=== PATIENT | female | born 1990 | race Caucasian/White ===

== ENCOUNTER → 2016-10-29 | Outpatient (CLI) | payer BC ==
[~2016-10-29] MED LIST: DOCU100C31 PO; MTR600X PO; OXYC-57 PO; PRENTAB26 PO
== END | disposition home or self-care (01) ==
LOC: C.LABSPEC 10:27
PROVIDERS: ATTEND Obstetrics & Gynecology
DX: O09.03 Supervision of pregnancy with history of infertility, third trimester (principal); Z3A.00 Weeks of gestation of pregnancy not specified

== ENCOUNTER → 2016-10-31 | Outpatient (CLI) | payer BC ==
[2016-10-31 10:40] LABS: PATIENT HEIGHT 167.6 cm
[2016-10-31 10:41] LABS: HEMATOCRIT 33.8 % (37-47); MEAN CELL VOLUME 80.5 fL (80-100); MEAN CORPUSCULAR HEMOGLOBIN 26.9 pg (25-34); MEAN CORPUSCULAR HGB CONC 33.4 g/dl (32-36); MEAN PLATELET VOLUME 12.4 fL (7.4-10.4); PLATELET COUNT 238 K/uL (130-400); WHITE BLOOD COUNT 10.41 K/uL (4.8-10.8)
[2016-10-31 11:11] LABS: ALT/SGPT 33 U/L (12-78); AST/SGOT 9 U/L (15-37); CREATININE 0.75 mg/dl (0.60-1.20)
[2016-10-31 11:13] LABS: ALKALINE PHOSPHATASE 152 U/L (45-117)
[2016-10-31 11:46] LABS: URINE TOTAL PROTEIN 13.5 mg/dl (0-11.9)
[2016-10-31 12:32] LABS: CREATININE 0.71 mg/dl (0.6-1.2)
[2016-10-31 12:34] LABS: URINE TOTAL PROTEIN CALC 182.3 mg/24 hr (0-149.1)
== END | disposition home or self-care (01) ==
LOC: C.LAB 10:05
PROVIDERS: ATTEND Obstetrics & Gynecology
DX: O16.3 Unspecified maternal hypertension, third trimester (principal)

== ENCOUNTER 2016-11-01 04:13 | Outpatient (CLI) | payer BC | END 2016-11-01 08:15 | disposition home or self-care (01) | LOC: C.OPB 04:13 → C.LD 04:16 → C.OPB 08:15 | PROVIDERS: ATTEND Obstetrics & Gynecology | DX: O62.9 Abnormality of forces of labor, unspecified (principal); Z3A.37 37 weeks gestation of pregnancy ==

== ENCOUNTER 2016-11-17 04:38 | Inpatient (IN) | payer BC ==
[~2016-11-17] VITALS: Ht 167.6 cm; Wt 120.0 kg
[2016-11-17] MEDS ORDERED: DOCU100C31 PO (05:15)
[2016-11-17] MEDS ORDERED: PRENTAB26 PO (05:15)
[2016-11-17 05:16] VITALS: Ht 167.6 cm; Wt 120.0 kg
[2016-11-17] MEDS ORDERED: LACTATED RINGER'S 1000ML 1,000 ML IV PRN (05:41)
[2016-11-17 06:39] LABS: HEMATOCRIT 32.6 % (37-47); MEAN CELL VOLUME 81.1 fL (80-100); MEAN CORPUSCULAR HEMOGLOBIN 26.9 pg (25-34); MEAN CORPUSCULAR HGB CONC 33.1 g/dl (32-36); MEAN PLATELET VOLUME 12.4 fL (7.4-10.4); PLATELET COUNT 237 K/uL (130-400); RED BLOOD COUNT 4.02 M/uL (4.2-5.4); WHITE BLOOD COUNT 9.07 K/uL (4.8-10.8)
[2016-11-17] MEDS: LACTATED RINGER'S 1000ML 1,000 ML IV SCH (10:30)
[2016-11-17] MEDS ORDERED: BUPIVACAINE 0.25% 30 ML VIAL ONE (10:31)
[2016-11-17] MEDS ORDERED: EpHEDrine SULFATE INJ 50 MG/ML AMP ONE (10:32)
[2016-11-17] MEDS ORDERED: FENTANYL CITRATE INJ 50 MCG/1 ML 2 ML VIAL ONE (10:32)
[2016-11-17] MEDS ORDERED: FENTANYL 2MCG/ML ROPIV 1.25MG/ML 100ML BAG EPI ONE (10:32)
[2016-11-17] MEDS ORDERED: NALOXONE HCL INJ 1 MG in SODIUM CHLORIDE 0.9% 1000ML 1,000 ML IV PRN (11:59)
[2016-11-17] MEDS ORDERED: LACTATED RINGER'S 1000ML 500 ML IV PRN ×2 (11:59→13:05)
[2016-11-17] MEDS ORDERED: EpHEDrine SULFATE INJ 50 MG/ML AMP IV PRN (12:00)
[2016-11-17] MEDS ORDERED: NALBUPHINE HCL INJ 10 MG/ML AMP IV PRN (12:00)
[2016-11-17] MEDS ORDERED: DiphenhydrAMINE HCL 50 MG/ML VIAL IV PRN (12:00)
[2016-11-17] MEDS ORDERED: ONDANSETRON INJ 2 MG/ML 2 ML VIAL IV PRN (12:00)
[2016-11-17] MEDS ORDERED: NALOXONE HCL INJ 0.4 MG/1 ML VIAL/CARP IV PRN (12:00)
[2016-11-17] MEDS: OXYTOCIN 30 UNITS/500ML NSS IV PRN (13:20)
--- NOTE | 2016-11-17 13:38 | Medical Student: [facility] ---
Med Student History & Physical Date of Service Nov 17, 2016. 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 Her history is significant for Rh negative status, PCOS, history of infertility, cystic fibrosis carrier, and gestational hypertension. At 12 week visit, BP was 142/86 and at 39 week visit, BP was 140/78. She was scheduled for weekly NSTs @ 32 weeks and biweekly NSTs @ 36 weeks. All NSTs thus far have been reactive and last growth US showed EFW 90% and UAD and HERRERA WNL. During her course, she did have a positive diabetes screen of 147 at 28 week check. Her subsequent 2 hour GTT was normal. This was conceived on Femara and Metformin. Patient's BIOSTATISTICS DIRECTOR history is insignificant as last pap in 2015 was negative for intraepithelial lesion or malignancy. Obstetrical history is significant for a spontaneous in 2015. Patient is blood type AB negative, negative antibody screen, rubella immune, VDRL/RPR nonreactive, HbsAg & HIV negative, G & C negative, negative GBS culture , and negative 2nd trimester screen. Patient was positive for a cystic fibrosis carrier, but father is not a carrier. OB History Obstetrical history is significant for a spontaneous in 2015. BIOSTATISTICS DIRECTOR History Her BIOSTATISTICS DIRECTOR history is significant for menarche at age 13. Menstruation was always irregular d/t PCOS. Last pap smears in 2013 and 2015 were negative for intraepithelial lesion or malignancy. No history of abnormal pap smears or STIs. Past Medical History PMH is significant for obesity and PCOS. Past Surgical History Surgical history is significant for chin surgery, myringotomy tubes, and wisdom teeth extraction. Family History Family history is significant for a grandmother who had a child with spina bifida. Social History Smoking Status: Never Smoker Smokeless Tobacco Use: No Alcohol Use: none Drug Use: none Marital Status: Housing status: lives with significant other Occupational Status: unemployed Allergies Coded Allergies: No Known Allergies (Unverified , 11/17/16) Home Medications Docusate Sodium (Docusate Sodium), 1 CAP PO BID Multivit/Min/Iron/Fol Ac/Pren ( Vitamin), 1 TAB PO DAILY Review of Systems Constitutional: + problem reported (Headache), No fever Eyes: No worsening of vision ENT: No hearing loss Respiratory: No cough, No shortness of breath Cardiovascular: No chest pain, No palpitations Abdomen: + nausea, No constipation, No diarrhea, No pain, No vomiting Genitourinary - Female: No dysuria Integumentary: No new/changing skin lesions, No rash Physical Exam General Appearance: WD/WN, no apparent distress Head: normocephalic Eyes: normal inspection ENT: normal ENT inspection Neck: supple Respiratory/Chest: lungs clear, normal breath sounds, no respiratory distress Cardiovascular: regular rate, rhythm, no edema, no gallop, no JVD, no murmur Extremities: no pedal edema Skin: normal color Cervical Exam: 2 cm dilated, 70 % effaced, -2 station Monitoring External Monitor: heart tracing category 1: HR 144, moderate variability, absent accelerations, absent variable, late and early decelerations Tocodynamometer: contractions every 2-5 minutes Laboratory Results 11/17/16 05:58 Test 11/17/16 05:58 Red Blood Count 4.02 M/uL (4.2-5.4) Mean Corpuscular Volume 81.1 fL (80-100) Mean Corpuscular Hemoglobin 26.9 pg (25-34) Mean Corpuscular Hemoglobin Concent 33.1 g/dl (32-36) RDW Standard Deviation 45.3 fL (36.4-46.3) RDW Coefficient of Variation 15.3 % (11.5-14.5) Mean Platelet Volume 12.4 fL (7.4-10.4) Assessment and Plan 26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 Her history is significant for Rh negative status, PCOS, history of infertility, cystic fibrosis carrier, and gestational hypertension. Patient is currently in latent Stage 1 of labor. -continue IV Zofran 4 mg q6hr for nausea -continue IV Nalbuphine 5 mg Q10M PRN -continue Oxytocin 30 units UD IV PRN for labor induction -continue epidural for pain -encourage ambulation -continue EFM
--- NOTE | 2016-11-17 16:55 | Medical Student: [facility] ---
Med Student ELECTROMECHANICAL ENGINEER Progress Nt Date of Service Nov 17, 2016. Subjective conversation w/ patient Notes: 26 year old , PLEATER HAND of 11/21/16 by LMP 02/15/16, 39 + 1 weeks GA, for labor check. Her history is significant for Rh negative status, PCOS, history of infertility, cystic fibrosis carrier, and gestational hypertension. Patient did have some bleeding (bloody show), but no other fluid leaks. Patient can feel pressure with each contraction and continues to feel the baby moving. Patient feels much better after straight catheterization (500 cc) and after being repositioned. Patient has FRANCIS, but denies vision changes,dizziness, chest pain, and SOB. Review of Systems Constitutional: + problem reported (headache), No fever Respiratory: No cough, No shortness of breath Cardiac: No chest pain, No palpitations Abdomen: No constipation, No diarrhea, No nausea, No pain, No vomiting Female : No dysuria Objective Vital Signs maternal HR 111 maternal BP 141/82 Physical Exam General Appearance: WELL-APPEARING, WD/WN Respiratory/Chest: lungs clear, normal breath sounds, no respiratory distress Cardiovascular: regular rate, rhythm, no edema, no gallop, no JVD, no murmur Laboratory Results Last 24 Hours Test 11/17/16 05:58 White Blood Count 9.07 K/uL Red Blood Count 4.02 M/uL Hemoglobin 10.8 g/dL Hematocrit 32.6 % Mean Corpuscular Volume 81.1 fL Mean Corpuscular Hemoglobin 26.9 pg Mean Corpuscular Hemoglobin Concent 33.1 g/dl RDW Standard Deviation 45.3 fL RDW Coefficient of Variation 15.3 % Platelet Count 237 K/uL Mean Platelet Volume 12.4 fL Medications Medications (Trade) Dose Ordered Sig/Vicky Route Start Time Stop Time Status Last Admin Dose Admin Lactated Ringer's (Lr 1000ml) 1,000 ml @ 125 mls/hr Q8H IV 11/17/16 05:41 11/19/16 05:40 11/17/16 10:30 125 MLS/HR Bupivacaine HCl (Sensorcaine 0.25% Inj) 30 ml STK-MED ONCE .ROUTE 11/17/16 10:31 11/17/16 10:33 DC 11/17/16 11:57 30 ML Fentanyl/ Ropivacaine (Fentanyl 2MCG/ Ml/Ropivacaine 1.25MG/ML) 100 ml STK-MED ONCE EPI 11/17/16 10:32 11/17/16 10:33 DC 11/17/16 11:57 100 ML Fentanyl Citrate (Fentanyl Inj) 100 mcg STK-MED ONCE .ROUTE 11/17/16 10:32 11/17/16 10:34 DC 11/17/16 11:58 20 MCG Oxytocin (Pitocin IV) 30 units UD PRN IV 11/17/16 13:15 12/17/16 13:14 11/17/16 13:20 30 UNITS Assessment and Plan Continue Routine Care: 26 year old , PLEATER HAND of 11/21/16 by LMP 02/15/16, 39 + 1 weeks GA, for labor check. Her history is significant for Rh negative status, PCOS, history of infertility, cystic fibrosis carrier, and gestational hypertension. Patient is currently in latent Stage 1 of labor. heart tracing is category 1 (HR 147, moderate variability, absent accelerations, absent early, late and variable decelerations). -continue IV Zofran 4 mg q6hr for nausea -continue IV Nalbuphine 5 mg Q10M PRN -increase Oxytocin to 50 units UD IV PRN for labor induction -continue epidural for pain -encourage ambulation -continue EFM
[2016-11-17] MEDS: FENTANYL 2MCG/ML ROPIV 1.25MG/ML 100ML BAG EPI PRN ×2 (19:21→21:07)
[2016-11-18] VITALS (15 sets, daily range): BP systolic 97–124; BP diastolic 60–80; PULSE 69–90; TEMP 36.9–37.4; O2SAT 92–100
[2016-11-18] MEDS: LACTATED RINGER'S 1000ML 1,000 ML IV SCH ×3 (00:30→09:37)
[2016-11-18] MEDS: FENTANYL 2MCG/ML ROPIV 1.25MG/ML 100ML BAG EPI PRN ×4 (03:16→07:33)
[2016-11-18] MEDS ORDERED: NURSING VERBAL MED ORDER ONE (03:30)
[2016-11-18] MEDS ORDERED: BUPIVACAINE 0.25% 30 ML VIAL ONE (04:08)
[2016-11-18] MEDS: OXYTOCIN 30 UNITS/500ML NSS IV PRN (06:24)
--- NOTE | 2016-11-18 08:05 | Medical Student: [facility] ---
Med Student FISH PITCHER Progress Nt Date of Service Nov 18, 2016. 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 Her history is significant for Rh negative status, PCOS, history of infertility, cystic fibrosis carrier, and gestational hypertension. Patient was sleeping when I entered the room. Objective Vital Signs Maternal HR 95 Maternal BP 126/60 Physical Exam Internal Monitoring: heart tracing Category 1 (HR 145, moderate variability, absent accelerations, present early decelerations, absent late and variable decelerations) Tocodynamometer: Contractions every 3-4 minutes Medications Medications (Trade) Dose Ordered Sig/Vicky Route Start Time Stop Time Status Last Admin Dose Admin Bupivacaine HCl (Sensorcaine 0.25% Inj) 30 ml STK-MED ONCE .ROUTE 11/17/16 10:31 11/17/16 10:33 DC 11/17/16 11:57 30 ML Fentanyl/ Ropivacaine (Fentanyl 2MCG/ Ml/Ropivacaine 1.25MG/ML) 100 ml STK-MED ONCE EPI 11/17/16 10:32 11/17/16 10:33 DC 11/17/16 11:57 100 ML Fentanyl Citrate (Fentanyl Inj) 100 mcg STK-MED ONCE .ROUTE 11/17/16 10:32 11/17/16 10:34 DC 11/17/16 11:58 20 MCG Fentanyl/ Ropivacaine (Fentanyl 2MCG/ Ml/Ropivacaine 1.25MG/ML) 100 ml PRN PRN EPI 11/17/16 12:00 11/18/16 04:30 DC 11/18/16 04:18 100 ML Oxytocin (Pitocin IV) 30 units UD PRN IV 11/17/16 13:15 12/17/16 13:14 11/18/16 06:24 30 UNITS Fentanyl/ Ropivacaine (Fentanyl 2MCG/ Ml/Ropivacaine 1.25MG/ML) 100 ml PRN PRN EPI 11/18/16 04:30 11/19/16 04:29 11/18/16 07:33 100 ML Assessment and Plan Continue Routine Care: 26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 Her history is significant for Rh negative status, PCOS, history of infertility, cystic fibrosis carrier, and gestational hypertension. Patient is in active Stage 1 of labor (8 cm dilated, 100% effaced, 0 station). heart tracing is Category 1. -continue IV Oxytocin 30 units UD PRN for labor induction -continue Internal monitoring, watch for late decelerations
[2016-11-18] MEDS ORDERED: LIDOCAINE/EPINEPHRINE 2% 1:200,000 20 ML SDV ONE (08:59)
[2016-11-18] MEDS ORDERED: CEFAZOLIN IV 3,000 MG in DEXTROSE 5% 50ML 50 ML IV SCH (09:00)
[2016-11-18] MEDS ORDERED: LACTATED RINGER'S 1000ML 1,000 ML IV ONE (09:30)
[2016-11-18] MEDS ORDERED: CITRIC ACID/SODIUM CITRATE 15 ML UDC PO ONE (09:30)
[2016-11-18] MEDS ORDERED: SODIUM CHLORIDE 0.9% 1000ML 1,000 ML IV PRN (10:26)
[2016-11-18] MEDS ORDERED: NALOXONE HCL INJ 1 MG in SODIUM CHLORIDE 0.9% 1000ML 1,000 ML IV PRN (10:26)
[2016-11-18] MEDS ORDERED: NALOXONE HCL INJ 0.08 MG in SYRINGE 1.8 ML IV PRN (10:26)
[2016-11-18] MEDS ORDERED: LACTATED RINGER'S 1000ML 500 ML IV PRN (10:26)
[2016-11-18] MEDS ORDERED: OXYTOCIN INJ 10 UNITS/ML VIAL ONE (10:27)
[2016-11-18] MEDS ORDERED: ONDANSETRON INJ 2 MG/ML 2 ML VIAL ONE (10:27)
[2016-11-18] MEDS ORDERED: MoRPHine SULFATE PF 1 MG/ML 10 ML AMP/VIAL ONE (10:28)
[2016-11-18] MEDS ORDERED: NALBUPHINE HCL INJ 10 MG/ML AMP IV PRN (10:30)
[2016-11-18] MEDS ORDERED: DC INTRASPINAL MORPHINE SCH (10:30)
[2016-11-18] MEDS ORDERED: ATROPINE SULFATE 0.1 MG/ML 5ML SYR IV PRN (10:30)
[2016-11-18] MEDS ORDERED: MoRPHine SULFATE PF 1 MG/ML 10 ML AMP/VIAL EPI PRN (10:30)
[2016-11-18] MEDS ORDERED: DiphenhydrAMINE HCL 50 MG/ML VIAL IV PRN ×2 (10:30)
[2016-11-18] MEDS ORDERED: MEPERIDINE HCL 25 MG/ML CARP IV PRN ×2 (10:30)
[2016-11-18] MEDS ORDERED: EpHEDrine SULFATE INJ 50 MG/ML AMP IV PRN ×2 (10:30)
[2016-11-18] MEDS ORDERED: NALOXONE HCL 0.4 MG/1 ML VIAL/CARP IV PRN (10:30)
[2016-11-18] MEDS ORDERED: ONDANSETRON INJ 2 MG/ML 2 ML VIAL IV PRN ×2 (10:30)
[2016-11-18] MEDS ORDERED: MoRPHine SULFATE 2 MG/ML CARP IV PRN (10:30)
[2016-11-18] MEDS ORDERED: NO NARCOTICS OR SEDATIVES SCH (10:30)
[2016-11-18] MEDS ORDERED: KETOROLAC TROMETHAMINE 30 MG/ML VIAL IV. PRN (10:30)
[2016-11-18] MEDS ORDERED: LABETALOL HCL IV 5 MG/ML 20ML IV PRN (10:30)
--- NOTE | 2016-11-18 10:44 | [facility] Post Operative Brief Note ---
Immediate Operative Summary Operative Date Nov 18, 2016. Pre-Operative Diagnosis FTP Post-Operative Diagnosis FTP Procedure(s) Performed Low segment transverse C/S Surgeon Shanti Harness Repairer Surgeon(s) Elvin Estimated Blood Loss 600ml Findings normal anatomy Specimens cord gases Drains Braswell Anesthesia Epidural Complication(s) None Disposition L&D
[2016-11-18] MEDS ORDERED: MAGNESIUM HYDROXIDE SUSP 30 ML UDC PO PRN (10:45)
[2016-11-18] MEDS ORDERED: BENZOCAINE 20% AER SPR 82.5 GM CAN EXT PRN (10:45)
[2016-11-18] MEDS ORDERED: HYDROCORTISONE ACETATE 25 MG SUPP PR PRN (10:45)
[2016-11-18] MEDS ORDERED: CARBOPROST TROMETHAMINE 250 MCG/ML AMP IM ONE (10:45)
[2016-11-18] MEDS ORDERED: LANOLIN OINT EXT PRN ×2 (10:45)
[2016-11-18] MEDS ORDERED: SENNA 8.6 MG TAB PO PRN (10:45)
[2016-11-18] MEDS ORDERED: SUPERCREAM 0.870 % 15GM JAR EXT PRN (10:45)
[2016-11-18] MEDS: FENTANYL CITRATE INJ 50 MCG/1 ML 2 ML VIAL IV PRN ×2 (10:59→11:19)
[2016-11-18] MEDS ORDERED: OXYTOCIN INJ 20 UNITS in LACTATED RINGER'S 1000ML 1,000 ML IV SCH (11:00)
--- NOTE | 2016-11-18 11:19 | Anesthesia Procedure Note ---
Anesthesia Epidural Removal Nt Date & Time Nov 18, 2016 at 11:19 Vital Signs Pain Intensity: 7.0 Notes Mental Status: alert / awake / arousable, participated in evaluation Nausea / Vomiting: adequately controlled Pain: adequately controlled Airway Patency, RR, SpO2: stable & adequate BP & HR: stable & adequate Hydration State: stable & adequate Neuraxial Anesthesia: was administered, sensory block is resolving Anesthetic Complications: no major complications apparent, pt satisfied with anesthetic care Epidural: removed without complications, with tip intact
--- NOTE | 2016-11-18 11:26 | OPERATIVE REPORT ---
DATE OF OPERATION: 11/18/2016 PREOPERATIVE DIAGNOSES: Failure to descend and failure to progress in labor. POSTOPERATIVE DIAGNOSES: Same. PROCEDURE: Low segment transverse section. SURGEON: Dr. Reggie Moser. TAXATION ECONOMIST: Dr. Oconnor. ESTIMATED BLOOD LOSS: 600 mL. FINDINGS: Normal pelvic anatomy. SPECIMENS: Cord gases. DRAINS: Braswell catheter. ANESTHESIA: Epidural anesthetic. COMPLICATIONS: None. DISPOSITION: Labor and delivery. CLINICAL NOTE: Nissa is a patient who was managed almost entirely by Dr. Pierre. She had ruptured membranes and for the last 24 hours, had received augmentation by Dr. Pierre. She had had some late decelerations and Pitocin had been stopped early in the morning. The patient had been 8 cm at that time and was reassessed at approximately 08:45 in the morning, was found to still be 8 cm and -1 station as a result with no progress and she was determined to be failure to descend and failure to progress. We then recommended and the patient agreed. It should be noted that I did discuss with the patient an increased chance of infection due to a prolonged rupture of membranes and prolonged labor process associated with . This was placed on the consent as well. DESCRIPTION OF PROCEDURE: The patient was sent back to the operating room. She was positioned in a supine position with a leftward tilt. She had a Braswell catheter and epidural had been increased. We tested with pickups with teeth and found the incision to be adequate. Using a scalpel, I made a Pfannenstiel incision dissecting down to subcutaneous fat through the fascia in the midline, dissecting fascia laterally with curved Spencer scissors. The rectus muscles were then released from the fascia and superiorly and inferiorly. Rectus muscle split. Peritoneal cavity entered superiorly in location and opening expanded to allow exposure. We then placed a bladder retractor and used the Metzenbaums to skeletonize the bladder flap away. Bladder retractor was then repositioned and a low transverse incision made with scalpel. Entry was actually done into the uterine cavity bluntly with fingertip and then incision extended bluntly by the hydro operator's fingers to allow exposure. Fluid was clear. There was no nuchal cord. Baby was in a vertex position. Using my hand, I was able to release the baby from the pelvis easily as it was in a high position. By gentle flexion and pressure on the abdomen, we delivered the baby without difficulty. Mouth and then nares were suctioned with bulb. Baby delivered by gentle traction. Live vigorous male infant. Cord clamped and cut. Cord gases obtained. Cord blood obtained. Placenta removed and IV Pitocin started. There was some lack of hemostasis and bogginess to the uterus, so we did inject with 250 mg of Hemabate into the uterus and this improved things rapidly. There was no extension of tearing, so the uterus was closed in 2 layers with 0 Monocryl locked and a second reinforcing nonlocked. At this stage, after generous irrigation and suction of the cul-de-sac and bladder flap regions, the uterus was placed back in the peritoneal cavity. On inspection, hemostasis was excellent. Please note 3 grams Ancef was given preoperatively as well for antibiotic prophylaxis. We inspected the rectus muscles. They were hemostatic. Fascia closed with 0 Vicryl. Subcutaneous fat irrigated and closed with 3-0 Vicryl and then 4-0 subcuticular Monocryl closure with Steri-Strips applied. Urine was clear at the end of procedure. Sponge and instrument counts correct. I attest to the content of the Intraoperative Record and any orders documented therein. Any exceptions are noted below. MTDD
[2016-11-18] MEDS: HYDROmorphone INJ 1 MG/ML SYR IV PRN ×2 (11:44→11:55)
[2016-11-18] MEDS: SIMETHICONE 80 MG CHEW PO SCH ×3 (12:24→20:02)
--- NOTE | 2016-11-18 12:27 | Anesthesiology Progress Note ---
Anesthesia Post Op Note Date & Time Nov 18, 2016 at 12:26 Vital Signs Pain Intensity: 4.0 Notes Neuraxial Anesthesia: was administered, sensory block is resolving
[2016-11-18] MEDS ORDERED: LACTATED RINGER'S 1000ML 1,000 ML IV SCH (19:00)
[2016-11-18] MEDS: DOCUSATE SODIUM 100 MG CAP PO SCH (20:02)
[2016-11-19] VITALS (10 sets, daily range): BP systolic 89–115; BP diastolic 57–66; PULSE 72–90; TEMP 36.6–36.9; O2SAT 95–98
[2016-11-19] MEDS ORDERED: ZOLPIDEM TARTRATE 5 MG TAB PO PRN (04:30)
[2016-11-19] MEDS ORDERED: KETOROLAC TROMETHAMINE 30 MG/ML VIAL IV. PRN (04:30)
[2016-11-19] MEDS ORDERED: DiphenhydrAMINE HCL 50 MG/ML VIAL IV PRN (04:30)
[2016-11-19] MEDS ORDERED: PROMETHAZINE HCL INJ 25 MG in SODIUM CHLORIDE 0.9% 50ML 50 ML IV PRN (04:30)
[2016-11-19] MEDS ORDERED: MEPERIDINE HCL 50 MG/ML CARP IV PRN (04:30)
[2016-11-19] MEDS ORDERED: ONDANSETRON INJ 2 MG/ML 2 ML VIAL IV PRN (04:30)
[2016-11-19] MEDS ORDERED: MEPERIDINE HCL 75 MG/ML CARP IV PRN (04:30)
[2016-11-19 06:56] LABS: BASO % 0.1 %; BASO ABS # 0.01 K/uL (0-0.2); EOS % 1.7 %; HEMATOCRIT 26.3 % (37-47); IG% 0.3 %; LYMPH % 7.2 %; LYMPH ABS # 0.74 K/uL (1.2-3.4); MEAN CELL VOLUME 81.2 fL (80-100); MEAN CORPUSCULAR HEMOGLOBIN 27.5 pg (25-34); MEAN CORPUSCULAR HGB CONC 33.8 g/dl (32-36); MEAN PLATELET VOLUME 12.5 fL (7.4-10.4); MONO % 7.9 %; NEUT % 82.8 %; PLATELET COUNT 181 K/uL (130-400); RED BLOOD COUNT 3.24 M/uL (4.2-5.4)
--- NOTE | 2016-11-19 07:07 | Progress Note ---
Subjective Nov 19, 2016. Subjective conversation w/ patient, physical exam Ambulation: limited ambulation Voiding: voiding difficulty Passing Gas: Yes Diet Tolerance: Regular Diet Lochia: Moderate Feeding Type: Breast Feeding (Breast Pumping) Pain: Incisonal pain well controlled Review of Systems Constitutional: No chills, No fever Respiratory: No cough, No shortness of breath Cardiac: No chest pain Breast: No breast pain Abdomen: No nausea, No pain, No vomiting Female : No dysuria Objective Vital Signs Date Time Temp Pulse Resp B/P Pulse Ox O2 Delivery O2 Flow Rate FiO2 11/19/16 04:30 36.9 82 18 97/62 97 Room Air 11/19/16 04:30 18 97 11/19/16 04:00 18 98 11/19/16 03:00 16 95 11/19/16 02:00 18 95 11/19/16 01:00 18 96 11/19/16 00:00 16 96 11/18/16 23:30 94 Room Air 11/18/16 23:30 37.2 90 16 97/63 94 Room Air 11/18/16 23:00 16 95 11/18/16 22:00 16 94 11/18/16 21:30 16 96 11/18/16 20:30 18 96 11/18/16 19:50 18 99 11/18/16 19:50 36.9 88 18 98/60 99 Room Air 11/18/16 19:15 18 96 11/18/16 16:27 37.1 90 20 105/67 11/18/16 16:00 99 Nasal Cannula 11/18/16 15:30 20 100 11/18/16 15:20 92 Nasal Cannula 2.0 11/18/16 15:20 16 92 11/18/16 14:25 16 97 11/18/16 14:00 20 97 11/18/16 14:00 37.0 69 16 107/68 97 Room Air 11/18/16 12:55 16 93 11/18/16 12:55 37.4 89 16 117/79 93 Room Air 11/18/16 12:25 98 Room Air 11/18/16 12:25 36.9 89 20 124/80 11/18/16 12:25 98 Room Air 11/18/16 12:25 98 Room Air Physical Exam General Appearance: WELL-APPEARING, WD/WN, NO APPARENT DISTRESS Respiratory/Chest: lungs clear, normal breath sounds Cardiovascular: regular rate, rhythm, no gallop, no murmur Abdomen: non tender, soft Fundus: Firm, Relation to Umbilicus (1cm below umbilicus) Incision Description: Clean, Dry & Intact Extremities: no calf tenderness Laboratory Results Last 24 Hours Test 11/19/16 06:23 White Blood Count 10.30 K/uL Red Blood Count 3.24 M/uL Hemoglobin 8.9 g/dL Hematocrit 26.3 % Mean Corpuscular Volume 81.2 fL Mean Corpuscular Hemoglobin 27.5 pg Mean Corpuscular Hemoglobin Concent 33.8 g/dl Platelet Count 181 K/uL Mean Platelet Volume 12.5 fL Neutrophils (%) (Auto) 82.8 % Lymphocytes (%) (Auto) 7.2 % Monocytes (%) (Auto) 7.9 % Eosinophils (%) (Auto) 1.7 % Basophils (%) (Auto) 0.1 % Neutrophils # (Auto) 8.54 K/uL Lymphocytes # (Auto) 0.74 K/uL Monocytes # (Auto) 0.81 K/uL Eosinophils # (Auto) 0.17 K/uL Basophils # (Auto) 0.01 K/uL RDW Standard Deviation 46.9 fL RDW Coefficient of Variation 15.7 % Immature Granulocyte % (Auto) 0.3 % Immature Granulocyte # (Auto) 0.03 K/uL Medications Current Inpatient Medications Medications (Trade) Dose Ordered Sig/Vicky Route Start Time Stop Time Status Last Admin Dose Admin Oxytocin 20 units/ Lactated Ringer's 1,002 ml @ 125 mls/hr Q8H1M IV 11/18/16 11:00 12/18/16 10:59 11/18/16 11:22 125 MLS/HR Lactated Ringer's (Lr 1000ml) 1,000 ml @ 125 mls/hr Q8H IV 11/18/16 19:00 12/18/16 18:59 11/18/16 20:01 125 MLS/HR Ketorolac Tromethamine (Toradol Inj) 30 mg Q6H PRN IV. 11/19/16 04:30 11/24/16 04:29 11/19/16 05:03 30 MG Meperidine HCl (Demerol Inj) 50 mg Q4H PRN IV 11/19/16 04:30 12/03/16 04:29 Meperidine HCl (Demerol Inj) 75 mg Q4H PRN IV 11/19/16 04:30 12/03/16 04:29 Oxycodone/ Acetaminophen (Percocet 5-325mg Tab) 1 tab Q4H PRN PO 11/19/16 04:30 12/03/16 04:29 Oxycodone/ Acetaminophen (Percocet 5-325mg Tab) 2 tab Q4H PRN PO 11/19/16 04:30 12/03/16 04:29 Ibuprofen 600 mg 600 mg Q4H PRN PO 11/18/16 10:45 12/18/16 10:44 Promethazine HCl/ Sodium Chloride (Phenergan Inj/ Nss 50ml) 51 ml @ 204 mls/hr Q4H PRN IV 11/19/16 04:30 12/19/16 04:29 Ondansetron HCl (Zofran Inj) 4 mg Q4H PRN IV 11/19/16 04:30 12/19/16 04:29 Prenat Multivit/ [place]/Iron/Folic Ac ( Vitamin Tab) 1 tab DAILY PO 11/19/16 08:00 12/19/16 07:59 Bisacodyl (Dulcolax Tab) 5 mg HS ONCE PO 11/19/16 22:00 11/19/16 22:01 Bisacodyl (Dulcolax Supp) 10 mg PRN PRN RI 11/20/16 10:45 12/20/16 10:44 Docusate Sodium (coLACE CAP) 100 mg BID PO 11/18/16 20:00 12/18/16 19:59 11/18/16 20:02 100 MG Magnesium Hydroxide (Milk Of Magnesia Susp) 30 ml HS PRN PO 11/18/16 10:45 12/18/16 10:44 Cocaine HCl (Supercream 0.870% Cr) BID PRN EXT 11/18/16 10:45 12/02/16 10:44 Lanolin (Lanolin Oint) PRN PRN EXT 11/18/16 10:45 12/18/16 10:44 Hydrocortisone Acetate (Anusol Hc Supp) 25 mg BID PRN RI 11/18/16 10:45 12/18/16 10:44 Benzocaine (Dermoplast Aero Spr) 1 appln PRN PRN EXT 11/18/16 10:45 12/18/16 10:44 Zolpidem Tartrate (Ambien Tab) 5 mg HSZ PRN PO 11/19/16 04:30 12/19/16 04:29 Simethicone (Mylicon Chew Tab) 80 mg QID PO 11/18/16 12:24 12/18/16 12:59 11/18/16 20:02 80 MG Diphenhydramine HCl (Benadryl Cap) 25 mg QID PRN PO 11/19/16 04:30 12/19/16 04:29 Diphenhydramine HCl (Benadryl Inj) 25 mg QID PRN IV 11/19/16 04:30 12/19/16 04:29 Senna (Senokot Tab) 17.2 mg HS PRN PO 11/18/16 10:45 12/18/16 10:44 Assessment and Plan Post-Op Day#: 1 Continue Routine Care: -Vital Signs reviewed and WNL (temp max 36.9) - Blood Type: AB-, GBS Negative, Rubella Immune - Encourage Ambulation today - Tolerating PO Diet - Braswell catheter removed this morning, monitor voiding - Incision pain well controlled with Toradol Resident Physician Supervision Note: I interviewed and examined the patient. Discussed with and agree with findings and plan as documented in the note. Any exceptions or clarifications are listed here: [None] Documented By: Reggie Moser
[2016-11-19 07:26] LABS: COMPLETE YES
[2016-11-19] MEDS: IBUPROFEN 600 MG TAB PO PRN ×4 (08:17→22:38)
[2016-11-19] MEDS: OXYCODONE/ACETAMINOPHEN 5-325 TAB PO PRN ×4 (08:18→22:37)
[2016-11-19] MEDS: PRENATAL VITAMIN TAB PO SCH (08:19)
[2016-11-19] MEDS: SIMETHICONE 80 MG CHEW PO SCH ×4 (08:19→19:31)
[2016-11-19] MEDS: DOCUSATE SODIUM 100 MG CAP PO SCH ×2 (08:26→19:31)
[2016-11-19] MEDS ORDERED: BISACODYL 5 MG TABEC PO ONE (22:00)
[2016-11-20] MEDS: IBUPROFEN 600 MG TAB PO PRN ×5 (03:59→20:21)
[2016-11-20] MEDS: OXYCODONE/ACETAMINOPHEN 5-325 TAB PO PRN ×5 (03:59→20:22)
[2016-11-20 06:57] LABS: HEMATOCRIT 25.8 % (37-47)
--- NOTE | 2016-11-20 06:57 | Progress Note ---
Subjective Nov 20, 2016. Subjective conversation w/ patient, physical exam Ambulation: ambulating normally Voiding: no voiding problems Passing Gas: Yes Lochia: Moderate Feeding Type: Breast Feeding Pain: No pain reported this morning Review of Systems Constitutional: + chills, + fever Respiratory: + cough, + shortness of breath Cardiac: + chest pain Breast: + breast pain Abdomen: + nausea, + pain, + vomiting Female : + dysuria Objective Vital Signs Date Time Temp Pulse Resp B/P Pulse Ox O2 Delivery O2 Flow Rate FiO2 11/19/16 23:35 Room Air 11/19/16 23:35 36.6 72 16 115/62 97 Room Air 11/19/16 15:15 Room Air 11/19/16 15:15 36.7 89 18 99/66 97 Room Air 11/19/16 12:00 36.8 82 16 89/57 11/19/16 08:15 36.7 90 16 96/63 Physical Exam General Appearance: WELL-APPEARING, WD/WN, NO APPARENT DISTRESS Respiratory/Chest: lungs clear, normal breath sounds Cardiovascular: regular rate, rhythm, no gallop, no murmur Abdomen: non tender, soft Fundus: Firm, Relation to Umbilicus (1cm below umbilicus) Incision Description: Clean, Dry & Intact Extremities: no calf tenderness Laboratory Results Last 24 Hours Test 11/20/16 06:25 Medications Current Inpatient Medications Medications (Trade) Dose Ordered Sig/Vicky Route Start Time Stop Time Status Last Admin Dose Admin Oxytocin 20 units/ Lactated Ringer's 1,002 ml @ 125 mls/hr Q8H1M IV 11/18/16 11:00 12/18/16 10:59 11/18/16 11:22 125 MLS/HR Lactated Ringer's (Lr 1000ml) 1,000 ml @ 125 mls/hr Q8H IV 11/18/16 19:00 12/18/16 18:59 11/18/16 20:01 125 MLS/HR Ketorolac Tromethamine (Toradol Inj) 30 mg Q6H PRN IV. 11/19/16 04:30 11/24/16 04:29 11/19/16 05:03 30 MG Meperidine HCl (Demerol Inj) 50 mg Q4H PRN IV 11/19/16 04:30 12/03/16 04:29 Meperidine HCl (Demerol Inj) 75 mg Q4H PRN IV 11/19/16 04:30 12/03/16 04:29 Oxycodone/ Acetaminophen (Percocet 5-325mg Tab) 1 tab Q4H PRN PO 11/19/16 04:30 12/03/16 04:29 11/20/16 03:59 1 TAB Oxycodone/ Acetaminophen (Percocet 5-325mg Tab) 2 tab Q4H PRN PO 11/19/16 04:30 12/03/16 04:29 11/19/16 08:18 2 TAB Ibuprofen 600 mg 600 mg Q4H PRN PO 11/18/16 10:45 12/18/16 10:44 11/20/16 03:59 600 MG Promethazine HCl/ Sodium Chloride (Phenergan Inj/ Nss 50ml) 51 ml @ 204 mls/hr Q4H PRN IV 11/19/16 04:30 12/19/16 04:29 Ondansetron HCl (Zofran Inj) 4 mg Q4H PRN IV 11/19/16 04:30 12/19/16 04:29 Prenat Multivit/ [place]/Iron/Folic Ac ( Vitamin Tab) 1 tab DAILY PO 11/19/16 08:00 12/19/16 07:59 11/19/16 08:19 1 TAB Bisacodyl (Dulcolax Supp) 10 mg PRN PRN [place] 11/20/16 10:45 12/20/16 10:44 Docusate Sodium (coLACE CAP) 100 mg BID PO 11/18/16 20:00 12/18/16 19:59 11/19/16 19:31 100 MG Magnesium Hydroxide (Milk Of Magnesia Susp) 30 ml HS PRN PO 11/18/16 10:45 12/18/16 10:44 Cocaine HCl (Supercream 0.870% Cr) BID PRN EXT 11/18/16 10:45 12/02/16 10:44 Lanolin (Lanolin Oint) PRN PRN EXT 11/18/16 10:45 12/18/16 10:44 Hydrocortisone Acetate (Anusol Hc Supp) 25 mg BID PRN [place] 11/18/16 10:45 12/18/16 10:44 Benzocaine (Dermoplast Aero Spr) 1 appln PRN PRN EXT 11/18/16 10:45 12/18/16 10:44 Zolpidem Tartrate (Ambien Tab) 5 mg HSZ PRN PO 11/19/16 04:30 12/19/16 04:29 Simethicone (Mylicon Chew Tab) 80 mg QID PO 11/18/16 12:24 12/18/16 12:59 11/19/16 19:31 80 MG Diphenhydramine HCl (Benadryl Cap) 25 mg QID PRN PO 11/19/16 04:30 12/19/16 04:29 Diphenhydramine HCl (Benadryl Inj) 25 mg QID PRN IV 11/19/16 04:30 12/19/16 04:29 Senna (Senokot Tab) 17.2 mg HS PRN PO 11/18/16 10:45 12/18/16 10:44 Assessment and Plan Post-Op Day#: 2 Continue Routine Care: - Vital Signs reviewed and WNL (temp max 36.6) - Blood Type: AB-, GBS Negative, Rubella Immune - Encourage Ambulation today - Tolerating PO Diet - Denies any pain this morning Resident Physician Supervision Note: I interviewed and examined the patient. Discussed with Dr. Savage and agree with findings and plan as documented in the note. Any exceptions or clarifications are listed here: Doing overall well. Continue routine care. Documented By: Zenobia Dsouza
[2016-11-20] MEDS: SIMETHICONE 80 MG CHEW PO SCH ×4 (08:09→20:20)
[2016-11-20] MEDS: DOCUSATE SODIUM 100 MG CAP PO SCH ×2 (08:09→20:20)
[2016-11-20] MEDS: PRENATAL VITAMIN TAB PO SCH (08:09)
[2016-11-20 08:20] VITALS: BP 130/77; PULSE 86; TEMP 37; O2SAT 98
[2016-11-20] MEDS ORDERED: BISACODYL 10 MG SUPP PR PRN (10:45)
[2016-11-20 16:00] VITALS: BP 142/79; PULSE 93; TEMP 36.5; O2SAT 98
[2016-11-20 23:05] VITALS: BP 113/70; PULSE 90; TEMP 37.2
[2016-11-21] MEDS: OXYCODONE/ACETAMINOPHEN 5-325 TAB PO PRN ×3 (00:42→09:11)
[2016-11-21] MEDS: IBUPROFEN 600 MG TAB PO PRN ×3 (00:43→09:09)
--- NOTE | 2016-11-21 06:47 | Progress Note ---
Subjective Nov 21, 2016. Subjective conversation w/ patient, physical exam Ambulation: ambulating normally Voiding: no voiding problems Passing Gas: Yes Diet Tolerance: Regular Diet [place]: Moderate Feeding Type: Breast Feeding Pain: No pain reported this morning Review of Systems Constitutional: No chills, No fever Respiratory: No cough, No shortness of breath Cardiac: No chest pain Breast: No breast pain Abdomen: No nausea, No pain, No vomiting Female : No dysuria Objective Vital Signs Date Time Temp Pulse Resp B/P Pulse Ox O2 Delivery O2 Flow Rate FiO2 11/20/16 23:05 Room Air 11/20/16 23:05 37.2 90 16 113/70 Room Air 11/20/16 16:00 36.5 93 20 142/79 98 Room Air 11/20/16 16:00 Room Air 11/20/16 08:24 Room Air 11/20/16 08:20 37.0 86 18 130/77 98 Room Air Physical Exam General Appearance: WELL-APPEARING, WD/WN, NO APPARENT DISTRESS Respiratory/Chest: lungs clear, normal breath sounds Cardiovascular: regular rate, rhythm, no gallop, no murmur Abdomen: non tender, soft Fundus: Firm, Relation to Umbilicus (1cm below umbilicus) Incision Description: Clean, Dry & Intact Extremities: no calf tenderness Medications Current Inpatient Medications Medications (Trade) Dose Ordered Sig/Vicky Route Start Time Stop Time Status Last Admin Dose Admin Oxytocin 20 units/ Lactated Ringer's 1,002 ml @ 125 mls/hr Q8H1M IV 11/18/16 11:00 12/18/16 10:59 11/18/16 11:22 125 MLS/HR Lactated Ringer's (Lr 1000ml) 1,000 ml @ 125 mls/hr Q8H IV 11/18/16 19:00 12/18/16 18:59 11/18/16 20:01 125 MLS/HR Ketorolac Tromethamine (Toradol Inj) 30 mg Q6H PRN IV. 11/19/16 04:30 11/24/16 04:29 11/19/16 05:03 30 MG Meperidine HCl (Demerol Inj) 50 mg Q4H PRN IV 11/19/16 04:30 12/03/16 04:29 Meperidine HCl (Demerol Inj) 75 mg Q4H PRN IV 11/19/16 04:30 12/03/16 04:29 Oxycodone/ Acetaminophen (Percocet 5-325mg Tab) 1 tab Q4H PRN PO 11/19/16 04:30 12/03/16 04:29 11/21/16 05:25 1 TAB Oxycodone/ Acetaminophen (Percocet 5-325mg Tab) 2 tab Q4H PRN PO 11/19/16 04:30 12/03/16 04:29 11/19/16 08:18 2 TAB Ibuprofen 600 mg 600 mg Q4H PRN PO 11/18/16 10:45 12/18/16 10:44 11/21/16 05:25 600 MG Promethazine HCl/ Sodium Chloride (Phenergan Inj/ Nss 50ml) 51 ml @ 204 mls/hr Q4H PRN IV 11/19/16 04:30 12/19/16 04:29 Ondansetron HCl (Zofran Inj) 4 mg Q4H PRN IV 11/19/16 04:30 12/19/16 04:29 Prenat Multivit/ [place]/Iron/Folic Ac ( Vitamin Tab) 1 tab DAILY PO 11/19/16 08:00 12/19/16 07:59 11/20/16 08:09 1 TAB Bisacodyl (Dulcolax Supp) 10 mg PRN PRN SC 11/20/16 10:45 12/20/16 10:44 Docusate Sodium (coLACE CAP) 100 mg BID PO 11/18/16 20:00 12/18/16 19:59 11/20/16 20:20 100 MG Magnesium Hydroxide (Milk Of Magnesia Susp) 30 ml HS PRN PO 11/18/16 10:45 12/18/16 10:44 Cocaine HCl (Supercream 0.870% Cr) BID PRN EXT 11/18/16 10:45 12/02/16 10:44 Lanolin (Lanolin Oint) PRN PRN EXT 11/18/16 10:45 12/18/16 10:44 Hydrocortisone Acetate (Anusol Hc Supp) 25 mg BID PRN SC 11/18/16 10:45 12/18/16 10:44 Benzocaine (Dermoplast Aero Spr) 1 appln PRN PRN EXT 11/18/16 10:45 12/18/16 10:44 Zolpidem Tartrate (Ambien Tab) 5 mg HSZ PRN PO 11/19/16 04:30 12/19/16 04:29 Simethicone (Mylicon Chew Tab) 80 mg QID PO 11/18/16 12:24 12/18/16 12:59 11/20/16 20:20 80 MG Diphenhydramine HCl (Benadryl Cap) 25 mg QID PRN PO 11/19/16 04:30 12/19/16 04:29 Diphenhydramine HCl (Benadryl Inj) 25 mg QID PRN IV 11/19/16 04:30 12/19/16 04:29 Senna (Senokot Tab) 17.2 mg HS PRN PO 11/18/16 10:45 12/18/16 10:44 Assessment and Plan Post-Op Day#: 3 Continue Routine Care: - Vital Signs reviewed and WNL (temp max 37.2) - Blood Type: AB-, GBS Negative, Rubella Immune - Encourage Ambulation today - Tolerating PO Diet - No pain reported this morning - Discharge today Resident Physician Supervision Note: I was present with Dr. Savage during the history and exam. I discussed the case with the resident and agree with the findings and plan as documented in the note. Any exceptions or clarifications are listed here: doing well, ready for discharge, breast and bottle feeding. f/u 6wks. instructions reviewed. incision c/d/i Documented By: Apurva Sargent
--- NOTE | 2016-11-21 06:49 | Discharge Instructions ---
Discharge Instructions Admission Reason for Admission: LABOR Discharge Discharge Diagnosis / Problem: Cesarian Section Discharge Goals Goal(s): Routine recovery after Medications Continue Dispensed Medications: supercream, dermaplast, tucks Activity Recommendations Activity Limitations: per Instructions/Follow-up section . Instructions / Follow-Up Instructions / Follow-Up ACTIVITY RECOMMENDATIONS: * Gradual return to full activity over the next 2-3 weeks. * No lifting - nothing heavier than baby over the next 2-3 weeks. * Do not engage in vigorous exercise, sexual activity or sports until cleared by your physician. * Do not drive or operate any motorized equipment until cleared by your physician. * You may shower/bathe daily. MEDICATIONS: For discomfort or pain, you may use Acetaminophen (Tylenol), Ibuprofen (Advil), or Naproxen (Aleve) following the package directions. For constipation you may use Colace following the package directions. BREAST CARE: If you are not breast feeding: * Wear a supportive bra 24 hours a day for one to two weeks. * Avoid stimulating your breasts and nipples as much as possible during the first few weeks after delivery. * When taking a shower, have the warm water hit your back, not breasts. * When your breasts feel full, apply ice packs. Usually three to four times a day helps ease the discomfort. * Take a mild pain medication (Tylenol / Motrin) when you are uncomfortable. If breast feeding: * Use breast milk to lubricate nipples. Lansinoh cream may be used for sore nipples. You do not need to remove cream prior to breast feeding. If using a different brand of cream, check the label for directions regarding removal of cream prior to nursing. * Wear a supportive bra. * If having problems with breasts or breast feeding, call a medical device sales consultant or your health care provider. SPECIAL CARE INSTRUCTIONS: When you are discharged from the hospital, it is important for you to follow the instructions listed below: * During the first week at home, you should be able to care for yourself and your baby. In addition, the usual light household activities are encouraged. * Limit your activities to the way you feel. Do not try to clean the house or move furniture. Be sensible. * If you actively engage in sports and have done so up until the time of your delivery, you may resume these activities as soon as you feel able. This may take up to one month or even longer. Use good judgment. * Continue to take your vitamins for at least six weeks after the of your baby. * Your diet need not be limited unless you were on a special diet before your delivery. Breast-feeding mothers need around 2500 calories per day and at least 64-80 ounces of fluid per day (8 to 10 glasses). * You should eat foods from the four major food groups. Crash diets or fad diets are to be avoided. Eating lean meats, fresh fruits and vegetables, low-fat dairy products, high fiber foods and a regular exercise program, will help you get back to your pre- weight without putting your health at risk. * Constipation is sometimes a problem after delivery. Take a mild laxative as needed. If breast feeding, Milk of Magnesia is acceptable to use. You may use a suppository or Fleets enema. * A daily shower or tub bath is suggested. Wash incision daily with warm soapy water and pat dry. It doesn't need to be covered unless drainage is present. * A bloody vaginal discharge will usually continue until around four weeks . A small amount of bleeding may continue for as long as six weeks. Vaginal discharge changes from the bright red bleeding after delivery to pink then brownish and finally yellowish-pink before becoming white and disappearing. * Bleeding may increase with activity. Your first period may come in 4-8 weeks. If you are breast feeding, your period may be delayed even longer. * [place] (sex) can begin whenever both you and your partner feel comfortable and do not have any form of genital infection. It is recommended that you wait at least six weeks for internal and external healing to occur. If you have questions, please talk to your health care practitioner. A condom should be used to prevent infection and . * Foreplay, gentle intercourse and lubrication is very important the first several times to prevent pain. A water-based lubricant such as K-Y jelly or Astroglide may be used. * If you have RH negative blood and your baby is RH positive, you will receive RHOGAM by injection prior to discharge. The nurse will give you a card to keep with you that has the date and place that you received RHOGAM after delivery. * During your care, you had a Rubella screen done to check for the presence of rubella antibodies in your blood. If your test was negative, you will receive a Rubella vaccine prior to discharge. This vaccine may cause a fever, soreness at the injection site and flu-like symptoms. If these symptoms persist, notify your health care practitioner. is not advised for one month after a Rubella vaccine. * Verbalizes understanding of car seat law as reviewed with patient nursing. * Car Seat hand-out given and reviewed with patient by nursing. * Shaken baby information reviewed with patient by nursing. Call you doctor if: * Heavy bleeding (saturating several pads an hour) or passing clots the size of your fist. * A fever >101 degrees F (38.3 degrees C) on two occasions four hours apart and /or chills. * Unusual pain in the pelvic or vaginal areas. * Call the doctor for any increased redness, drainage or swelling around the incision and any pain unrelieved by prescribed pain medication. * "Baby Blues" lasting longer than two weeks. If you have any questions or concerns, call your health care practitioner at . FOLLOW UP VISIT: * Please call the office at to schedule a 6 week examination. It is important you keep this appointment. It is important for you to make arrangements for either yearly or twice yearly check-ups thereafter. Current Hospital Diet Patient's current hospital diet: Regular OB Diet Discharge Diet Recommended Diet: Regular Diet Procedures Procedures Performed: Primary Low Transverse Caesarean section Pending Studies Studies pending at discharge: no Medical Emergencies . Who to Call and When: Medical Emergencies: If at any time you feel your situation is an emergency, please call [phone] immediately. . Non-Emergent Contact Non-Emergency issues call your: Music Supervisor . . "Provider Documentation" section prepared by Dusty Savage. VTE Core Measure Inpt VTE Proph given/why not?: Treatment not indicated
[2016-11-21] MEDS: PRENATAL VITAMIN TAB PO SCH (07:53)
[2016-11-21] MEDS: SIMETHICONE 80 MG CHEW PO SCH (07:53)
[2016-11-21] MEDS: DOCUSATE SODIUM 100 MG CAP PO SCH (07:53)
[2016-11-21 07:55] VITALS: BP 168/85; PULSE 83; TEMP 36.6
[2016-11-21] MEDS ORDERED: OXYC-57 PO (08:38)
[2016-11-21] MEDS ORDERED: MTR600X PO (08:38)
[2016-11-21 11:44] VITALS: BP_DIAS 85; PULSE 83; TEMP 36.6
--- NOTE | 2016-11-27 08:45 | DISCHARGE SUMMARY ---
Nissa had a section. Operative note dictated. This was on 11/18/2016 in the morning. The patient had been followed in labor for a significant period of time with Dr. Pierre and had in the morning reached a failure to progress diagnosis and section was performed. Her course in the hospital was uncomplicated. By 11/21/2016 she met discharge criteria. She was assessed by the team at that time and stated she was ambulating well, had no voiding problems, was passing gas, was tolerating a regular diet, had minimal bleeding and was breast feeding. Her pain was minimal. PHYSICAL EXAMINATION: VITAL SIGNS: Stable. She was afebrile. CARDIOVASCULAR EXAMINATION: Within normal limits. CHEST EXAMINATION: Lung clear. Normal breath sounds. ABDOMEN: Soft, nontender. Fundus firm, nontender. Incision clean, dry and intact. EXTREMITY EXAMINATION: Negative. IMPRESSION AND PLAN: Postop day #3 . Discharge home with instructions and pain medications and told to follow up in the office.
== END 2016-11-21 12:08 | disposition home or self-care (01) | DRG 766 ==
LOC: C.OPB 04:38 → C.LD 04:38 → C.OPB 05:43 → C.OBG 11-18 12:24 → EDSTATUS 11-21 04:37
PROVIDERS: ADMIT Obstetrics & Gynecology; ATTEND Obstetrics & Gynecology
PROC: 10D00Z1 Extraction of Products of Conception, Low, Open Approach (ICD-10-PCS; principal; 2016-11-18 09:33)
DX: O16.4 Unspecified maternal hypertension, complicating childbirth (principal); O62.0 Primary inadequate contractions; Z37.0 Single live birth; Z3A.39 39 weeks gestation of pregnancy; Z87.42 Personal history of other diseases of the female genital tract